=== PATIENT | female | born 1940 | race Caucasian/White ===

== ENCOUNTER 2018-03-18 08:17 | Day surgery (SDC) | payer MEDICARE, BC ==
[2018-03-18] MEDS: SOD CHLORIDE 0.9% 1,000 ML IV (09:54)
[2018-03-18] MEDS ORDERED: MIDAZOLAM 1 MG/ML 2 ML INJ (11:44)
[2018-03-18] MEDS ORDERED: ROPIVACAINE 0.5 % 30 ML VIAL (11:45)
[2018-03-18] MEDS ORDERED: FENTAnyl 50 MCG/ML VIAL (11:53)
[2018-03-18] MEDS ORDERED: morphine 2 MG INJ IV (12:30)
[2018-03-18] MEDS ORDERED: PROPOFOL 60 ML (12:55)
[2018-03-18] MEDS ORDERED: METOCLOPRAMIDE 10 MG INJ (13:15)
[2018-03-18] MEDS ORDERED: ONDANSETRON 4 MG INJ (13:15)
[2018-03-18] MEDS ORDERED: LABETALOL HCL 20MG INJ IV (13:30)
[2018-03-18] MEDS ORDERED: OXYCODONE/ACETAMINOPHEN (5/325) TAB PO ×2 (13:30)
[2018-03-18] MEDS ORDERED: DIPHENHYDRAMINE 50 MG INJ IV (13:30)
[2018-03-18] MEDS ORDERED: hydrALAzine 20 MG INJ IV (13:30)
[2018-03-18] MEDS ORDERED: ONDANSETRON 4 MG INJ IV (13:30)
[2018-03-18] MEDS ORDERED: EPHEDrine SULFATE 50 MG/5 ML SYG IV (13:30)
[2018-03-18] MEDS ORDERED: MEPERIDINE 25 MG INJ IV (13:30)
[2018-03-18] MEDS ORDERED: HYDROmorphONE 1 MG/5 ML IV SYRINGE IV ×3 (13:30)
[2018-03-18] MEDS: POLYMYXIN/BACITRACIN 1L IRRIG (13:40)
[2018-03-18] MEDS ORDERED: BACITRACIN/POLYMYXIN 28.35 GM OINT TOP (17:19)
== END 2018-03-18 16:35 | disposition home or self-care (01) ==
LOC: SDS 08:17
DX: M20.42 Other hammer toe(s) (acquired), left foot (principal); E11.9 Type 2 diabetes mellitus without complications; I10 Essential (primary) hypertension; E78.5 Hyperlipidemia, unspecified; E03.9 Hypothyroidism, unspecified; Z79.84 Long term (current) use of oral hypoglycemic drugs
CPT/HCPCS: 28285; 73630-LT; 82306; 82962